=== PATIENT | male | born 1960 | race Caucasian/White ===

== ENCOUNTER 2018-02-11 08:37 | Day surgery (SDC) | payer BC, SELFPAY ==
[2018-02-11 09:08] VITALS: BP 136/99; PULSE 67; RESP 18; TEMP 36.8; O2SAT 95
[2018-02-11] MEDS: Lactated Ringers 1,000 ML 30 ML IV (09:45)
--- NOTE | 2018-02-11 11:42 | W.PM.DSUDISC ---
Discharge Plan Disposition Patient Disposition: HOME Condition: Good Discharge Details Reason For Visit: SCREENING Attending Provider: Rodo Rose Primary Care Provider: Mitch Ivan Home Meds and New Rx's Prescriptions: Continue atenolol 25 MG tablet 25 mg PO DAILY RF: 0 multivitamin 1 EACH capsule 1 ea PO DAILY RF: 0 omega-3 fatty acids-fish oil [Fish Oil] 1 EACH capsule 1 ea PO DAILY RF: 0 ergocalciferol (vitamin D2) [Vitamin D2] 50,000 UNITS capsule 50,000 units PO .WEEKLY RF: 0 Famotidine 20 MG tablet 20 mg PO DAILY RF: 0 Discharge Instructions Instructions: Colonoscopy (DC) Activity:: Activity as Tolerated Diet:: As Tolerated Discharge Orders Discharge Orders: Discharge Order (Routine); Ordered 02/11/18 Ordered By: Rodo Rose DS: Diagnosis Discharge Diagnosis (1) Encounter for screening colonoscopy: Status: Acute Asessment and Plan: Colonoscopy
--- NOTE | 2018-02-11 12:42 | BOWEL_PTH ---
PATIENT: SHANNA DAS LOC: [facility] U#:[id number] AGE/SX: 57/M ROOM: RE02/11/[address]: Rodo Rose DO : 1960 BED: DIS: 02/11/2018 SPEC #: [id number] RECD: 02/11/18 18:01 STATUS: EVELYN REQ #: [id number] LORRAINE: 02/11/18 12:[address]: Rodo Rose DEPT: Surgical Specimen RECD BY: Gay Meraz ENTERED: 02/11/18 18:02 SP TYPE: Bowel OTHR DR: Mitch Ivan Tissues: 1 - BIOPSY BOWEL Procedures: GROSS AND MICRO LEVEL 4 Comments: [id number]
[2018-02-11 13:52] VITALS: BP 111/70; PULSE 60; RESP 18; TEMP 36; O2SAT 96
--- NOTE | 2018-02-11 17:47 | COLE_ITS ---
Date of service: 02/11/18 Time of Service: 12:00 Colonoscopy Report Date of procedure: 02/11/18 Pre-op diagnosis general: Personal history of colon polyp Post-op diagnosis procedure note: other (Cecal polyp) Procedure: Colonoscopy to the cecum with biopsy by cold forceps Surgeon: Rodo Rose Anesthesia proc note operative: MAC (Terese Chandler CRNA; ASA 2, Mallampati class II) Estimated blood loss (mL): 1 Pathology: other (Cecal polyp biopsy) Complications: None Disposition: same day Indications: 57 y/o male presents for colonoscopy screening pre-op. His last screening was in 07/2017, which was remarkable for inflammatory polyp and his recommended follow up screening was for 7-9 months. He denies a family history of colon cancer. He denies any changes in bowel habits including bloody or black tarry stools, abdominal pain, diarrhea or constipation. His prior colonoscopy, to the colonoscopy performed in July, was for heme positive stools, and at that time he was found to have an inflammatory polyp. The inflammatory polyp was again seen in July, but felt to be smaller. The colonoscopy procedure has been reviewed with him, and the risks discussed. All his questions were answered to his satisfaction. Consents has been obtained to proceed with colonoscopy. Prep: Miralax/Dulcolax (Prep quality good) Findings: In examining the colon from cecum to anus, again was found the polypoid lesion in the cecum. The lesion itself appeared to be the same size or may be larger than observed in July. The ileocecal valve was easily identified and the terminal ileum could be visualized, but I was unable to intubate the valve. The area of which the cecal valve was involved appeared to be decreased in size and really presenting a smaller opening to examine it. This is concerning that it may be lead to obstruction. The remainder in the colon and rectum were unremarkable. Procedure Description: The patient was seen in the day surgery waiting area. His identification was confirmed, and procedure check. He was then brought to the procedure room. Monitoring for telemetry, blood pressure, oxygen saturation, and end tidal CO2 monitoring were applied. An appropriate time out was performed to confirm, identification, allergies, medication, procedure, was performed. Sedation was titrated for affect by the VALDO; Once adequate sedation was achieved, I performed a inspection of the external perineum, and a digitial rectal examination. No significant external abnormalities were noted. On digital rectal examination, there was no blood, no masses, good rectal tone, and a normal prostate. I advanced the colonoscope from the anus to the cecum under direct visualization. The cecum was identified by the ileal-cecal valve, and the appendiceal orifice. In the cecum , again, was noted the cecal polyp appeared to be the same size possibly larger than seen at the last colonoscopy. I took multiple biopsies from this and circumferentially around the ileocecal valve which involves this cecal polyp. I could see into the terminal ileum through the ileocecal valve but could not intubate the ileocecal valve itself due to either a technical issue with the scope angle or stricturing from the polyp. The area involving the polyp itself appeared to be narrowing narrowed which is concerning that it could cause an obstruction eventually, if this is continuing to grow. The scope was then withdrawn in circumferential manner from the cecum to the rectum. No abnormalites were noted in the remainder of the colon. The scope was then withdrawn into the rectum, and retroflexed. No abnormalities were noted of the rectum or anorectal junction. The scope was then withdrawn, terminating the procedure. There were no complications during the procedure, and the patient tolerated the procedure well. He was returned to the day surgery recovery area in good condition. Plan: We will await biopsy results before making further recommendations.
== END 2018-02-11 14:05 | disposition home or self-care (01) ==
PROVIDERS: PCP Family Medicine; Visit Provider Surgery
PROC: 0DJD8ZZ Inspection of Lower Intestinal Tract, Via Natural or Artificial Opening Endoscopic (ICD-10-PCS; CPT 45378; principal; 2018-02-11 10:30)
DX: Z87.19 Personal history of other diseases of the digestive system (principal); K51.40 Inflammatory polyps of colon without complications; K21.9 Gastro-esophageal reflux disease without esophagitis; I10 Essential (primary) hypertension
CPT/HCPCS: 45380; 88305